=== PATIENT | female | born 1965 | race African-American/Black ===

== ENCOUNTER 2016-08-20 09:41 | Emergency (ER) | payer OTHER ==
[~2016-08-20] VITALS: Ht 167.6 cm; Wt 87.6 kg
[2016-08-20 13:14] VITALS: BP 140/94
== END 2016-08-20 11:40 | disposition home or self-care (01) ==
LOC: ED 09:41
DX: S09.90XA Unspecified injury of head, initial encounter (principal); I10 Essential (primary) hypertension; Z79.899 Other long term (current) drug therapy; X58.XXXA Exposure to other specified factors, initial encounter; Y93.89 Activity, other specified; Y99.8 Other external cause status; Y92.89 Other specified places as the place of occurrence of the external cause
CPT/HCPCS: J1885